=== PATIENT | female | born 1995 | race Two or more races ===

== ENCOUNTER 2020-09-13 13:08 | Emergency (ER) | payer OTHER ==
[~2020-09-13] VITALS: Ht 162.6 cm; Wt 61.2 kg
[2020-09-13] MEDS ORDERED: CLEOCIN HCL300 MG PO (16:46)
[2020-09-13] MEDS ORDERED: MEDROLPACK PO (16:46)
== END 2020-09-13 17:59 | disposition home or self-care (01) ==
LOC: ER 13:08
DX: B34.9 Viral infection, unspecified (principal); Z20.828 Contact with and (suspected) exposure to other viral communicable diseases